=== PATIENT | female | born 1965 | race Caucasian/White ===

== ENCOUNTER 2018-04-29 06:01 | Emergency (ER) | payer OTHER, MEDICAID ==
[~2018-04-29] VITALS: Ht 170.2 cm; Wt 117.9 kg
[~2018-04-29 06:01] MED LIST: ADVAIR HFA 1112 UNIT INH; ALBUTEROL2.5 MG/31 INH; ALPRAZOLAM1 MG PO; ATORVASTATIN CA20 MG PO; CYCLOBENZAPRINE10 MG PO; DEPAKOTE 250MG250 M1 PO; ERYTHROMYCIN500 MG PO; FISH OIL 1,001000 M2 PO; GABAPENTIN800 M1 PO; HUMALOG100 UNIT/1 SQ; HUMALOG100 UNIT/1 SUBQ; HYDROCHLOROTHIA25 M1 PO; HYDROCODON-ACE1 EAC7 PO; HYDROCODONE-APA1 TA1 PO; IPRAT-ALBUT 0.5-3 ML IH; JANUMET 50-1,01 EACH PO; JANUMET 50-5001 EACH PO; LANTUS100 UNIT/M SUBQ; LEVOTHYROXIN0.125 M1 PO; LEVOTHYROXINE0.05 MG PO; LIDODERM 5%1 PATC1 TRANSDERM; LIDODERM 5%1 PATCH TOP; LISINOPRIL20 MG PO; LYRICA 50 MG50 MG PO; MELOXICAM15 MG PO; NAPROSYN500 MG PO; NOVOLOG100 UNIT/1 SUBQ; ONDANSETRON ODT4 MG PO; POTASSIUM20 PO; PREDNISONE 20 M20 M1 PO; PROVENTIL HFA6.7 G1 INH; RANITIDINE 150150 M1 PO; SERTRALINE HCL100 MG PO; SUMATRIPTAN SUC50 MG PO; SYMBICORT160 MCG/4. INH; TESSALON PERLE100 MG PO; TOUJEO SOL300 UNIT/1 SUBQ; TRAZODONE HCL50 MG PO; ZANAFLEX4 MG PO; [UNRECOGNIZED DRUG - OTHER]
[2018-04-29] MEDS ORDERED: MEDROLDOSEPACK PO (06:34)
[2018-04-29 06:48] VITALS: BP 130/75
== END 2018-04-29 06:49 | disposition home or self-care (01) ==
LOC: M.ERS 06:01
DX: H05.223 Edema of bilateral orbit (principal); G47.30 Sleep apnea, unspecified; I10 Essential (primary) hypertension; M19.90 Unspecified osteoarthritis, unspecified site; E03.9 Hypothyroidism, unspecified; E11.40 Type 2 diabetes mellitus with diabetic neuropathy, unspecified; Z79.4 Long term (current) use of insulin; Z87.01 Personal history of pneumonia (recurrent)

== ENCOUNTER 2018-12-04 23:27 | Emergency (ER) | payer OTHER, MEDICAID ==
[~2018-12-04] VITALS: Ht 170.2 cm; Wt 122.0 kg
[~2018-12-04 23:27] MED LIST changes: +MEDROLDOSEPACK PO
[2018-12-04] MEDS ORDERED: TOUJEO SOL300 UNIT/1 (23:40)
[2018-12-04] MEDS ORDERED: NEURONTIN 400400 M1 (23:41)
[2018-12-05 02:01] LABS: HEMOGLOBIN 13.6 gm/dL (12.0-15.0); MCH 29.5 pg (26.0-34.0); MCHC 33.1 g/dL (28.0-37.0); MCV 89.1 fL (80.0-100.0); MPV 10.1 fl. (7.2-11.1); NUCLEATED RBCS 0 /100WBC; PLATELET COUNT* 178 thou/uL (150-400); WBC 6.9 thou/uL (4.0-11.0)
[2018-12-05 02:05] LABS: CALCIUM 8.6 mg/dL (8.5-10.1); POTASSIUM 3.8 mmol/L (3.5-5.1)
[2018-12-05 02:10] LABS: ALBUMIN 3.3 g/dL (3.4-5.0); TOTAL BILIRUBIN 0.2 mg/dL (<0.1-1.0); TOTAL PROTEIN 7.2 g/dL (6.4-8.2)
[2018-12-05 03:38] LABS: ABSOLUTE EOSINOPHILS 0.8 thou/uL (0.0-0.7); ABSOLUTE LYMPHOCYTES 1.6 thou/uL (0.8-5.3); ABSOLUTE MONOCYTES 0.4 thou/uL (0.0-1.2); ABSOLUTE NEUTROPHILS 4.1 thou/uL (1.6-8.1); PLATELET ESTIMATE ADEQUATE; TOXIC GRANULATION 1+
[2018-12-05 03:40] VITALS: BP 145/80
--- NOTE | 2018-12-05 17:14 | EKG ---
[place] [address] ELECTROCARDIOGRAM REPORT Name: SUSHMA MATTHEWS Room: [facility]#: [id number] Admission: 12/04/18 Attend Phys: Discharge: 12/05/18 Date of : 61 Report #: [id number] THIS REPORT FOR: //name// [facility] ED Test Date: 2018-12-04 Test Time: 23:45:43 Pat Name: SUSHMA CASSIE Department: Room: Gender: F Jira Administrator: ZAID : [id number] Requested By: Leesa Fagan Order Number: [id number] Agnieszka MD: Aristeo Vazquez Measurements Intervals [place] Rate: 91 P: 20 WV: 136 QRS: 18 QRSD: 76 T: 33 QT: 504 QTc: 621 Interpretive Statements Sinus rhythm Low voltage, precordial leads Borderline T abnormalities, diffuse leads Prolonged QT interval No previous ECG available for comparison Electronically Signed On 12-05-2018 17:14:38 CDT by Aristeo Vazquez [email or web address] <ELECTRONICALLY SIGNED> By: Aristeo Vazquez MD, [facility] 12/05/18 1714 D: [id number] Aristeo Vazquez MD, FACC /EPI
== END 2018-12-05 03:52 | disposition home or self-care (01) ==
LOC: M.ERS 23:27
PROVIDERS: Personal Emergency Response Attendant
DX: R13.10 Dysphagia, unspecified (principal); G47.30 Sleep apnea, unspecified; I10 Essential (primary) hypertension; M48.00 Spinal stenosis, site unspecified; E11.43 Type 2 diabetes mellitus with diabetic autonomic (poly)neuropathy; K31.84 Gastroparesis; G62.9 Polyneuropathy, unspecified; M19.90 Unspecified osteoarthritis, unspecified site; E03.9 Hypothyroidism, unspecified; Z79.4 Long term (current) use of insulin

== ENCOUNTER 2019-06-22 11:05 | Emergency (ER) | payer OTHER, MEDICAID ==
[~2019-06-22] VITALS: Ht 170.2 cm; Wt 113.4 kg
[~2019-06-22 11:05] MED LIST changes: +NEURONTIN 400400 M1; +TOUJEO SOL300 UNIT/1
[2019-06-22] MEDS ORDERED: NAPROSYN500 MG PO (13:01)
[2019-06-22] MEDS ORDERED: NORCO 5-325 TA1 EAC1 PO (13:01)
[2019-06-22] MEDS ORDERED: ZANAFLEX4 MG PO (13:01)
[2019-06-22] MEDS ORDERED: MEDROLDOSEPACK PO (13:01)
[2019-06-22 13:09] VITALS: BP 171/81
== END 2019-06-22 13:10 | disposition home or self-care (01) ==
LOC: M.ERS 11:05
DX: S16.1XXA Strain of muscle, fascia and tendon at neck level, initial encounter (principal); M75.41 Impingement syndrome of right shoulder; G47.30 Sleep apnea, unspecified; I10 Essential (primary) hypertension; E11.43 Type 2 diabetes mellitus with diabetic autonomic (poly)neuropathy; K31.84 Gastroparesis; M19.90 Unspecified osteoarthritis, unspecified site; E11.40 Type 2 diabetes mellitus with diabetic neuropathy, unspecified; Z87.01 Personal history of pneumonia (recurrent); Z79.4 Long term (current) use of insulin; W18.39XA Other fall on same level, initial encounter; Y93.89 Activity, other specified; Y92.89 Other specified places as the place of occurrence of the external cause; Y99.8 Other external cause status